=== PATIENT | female | born 1955 | race Caucasian/White ===

== ENCOUNTER 2021-11-19 07:58 | Day surgery (SDC) | payer MEDICAID ==
[~2021-11-19] VITALS: Ht 170.2 cm; Wt 72.8 kg
[2021-11-19 08:15] VITALS: BP 176/101
[2021-11-19] MEDS ORDERED: HYDR-3964 PO (08:18)
[2021-11-19] MEDS ORDERED: IBUP-1986 PO (08:18)
[2021-11-19 11:24] LABS: BASOPHILS # (AUTO) 0.1 X10'3 (0-0.2); EOSINOPHILS # (AUTO) 0.1 X10'3 (0-0.9); MEAN PLATELET VOLUME 7.7 FL (7.4-10.4); MONOCYTES # (AUTO) 0.9 X10'3 (0-0.9); MONOCYTES % (AUTO) 10.7 % (2-12)
[2021-11-19 11:25] LABS: BASOPHILS % (AUTO) 0.7 % (0-1); EOSINOPHILS % (AUTO) 1.2 % (0-6); HEMATOCRIT 39.2 % (35.0-45.0); HEMOGLOBIN 12.8 g/dl (12.0-16.0); LYMPHOCYTES % (AUTO) 12.4 % (21-51); MEAN CORPUSCULAR HEMOGLOBIN 27.1 PG (27.0-31.0); MEAN CORPUSCULAR HGB CONC 32.7 g/dL (33.0-36.5); MEAN CORPUSCULAR VOLUME 82.9 FL (78-98); NEUTROPHILS # (AUTO) 6.3 X10'3 (1.8-7.7); PLATELET COUNT 392 X10'3 (140-440); RED BLOOD COUNT 4.73 X10'6 (4.20-5.60); RED CELL DISTRIBUTION WIDTH 16.2 % (11.5-14.5); WHITE BLOOD COUNT 8.4 X10'3 (4.5-11.0)
[2021-11-19] MEDS ORDERED: midazolam 1 mg/ML 2ml injection ONE (12:14)
[2021-11-19] MEDS ORDERED: fentaNYL/PF 50MCG/1 ML 2ML syringe ONE (12:15)
--- NOTE | 2021-11-19 12:50 | NUR ---
pt discharged in stable condition. all belongings sent home with pt. pt will follow up with Dr. Encarnacion for a bronchoscopy. procedure not done today. pt ambulated to private vehicle. piv dc'd canula intact.
== END 2021-11-19 12:50 | disposition home or self-care (01) ==
LOC: SSTAY O 07:58
PROVIDERS: ATTEND Preventive Medicine Aerospace Medicine
DX: J98.59 Other diseases of mediastinum, not elsewhere classified (principal); Z79.01 Long term (current) use of anticoagulants
CPT/HCPCS: 32408; 85025; 85610; J2250; J3010; J7030; 77012; A4615

== ENCOUNTER 2022-04-12 12:15 | Day surgery (SDC) | payer MEDICAID ==
[~2022-04-12] VITALS: Ht 167.6 cm; Wt 55.4 kg
[~2022-04-12 12:15] MED LIST: HYDR-3964 PO; IBUP-1986 PO
[2022-04-12 12:56] VITALS: BP 181/102
[2022-04-12] MEDS ORDERED: OXYC20TA78 PO (12:57)
[2022-04-12] MEDS ORDERED: POLY17PO59 PO (12:57)
[2022-04-12] MEDS ORDERED: PANT40TA54 PO (12:57)
[2022-04-12] MEDS ORDERED: PROC10TA10 (12:57)
[2022-04-12] MEDS ORDERED: ALBU90AE2 PO (12:57)
[2022-04-12 13:14] LABS: BASOPHILS % (AUTO) 0.7 % (0-1); EOSINOPHILS # (AUTO) 0.1 X10'3 (0-0.9); EOSINOPHILS % (AUTO) 1.3 % (0-6); HEMATOCRIT 36.7 % (35.0-45.0); LYMPHOCYTES # (AUTO) 0.5 X10'3 (1.1-4.8); LYMPHOCYTES % (AUTO) 7.3 % (21-51); MEAN CORPUSCULAR HEMOGLOBIN 32.4 PG (27.0-31.0); MEAN CORPUSCULAR HGB CONC 32.6 g/dL (33.0-36.5); MEAN CORPUSCULAR VOLUME 99.4 FL (78-98); MEAN PLATELET VOLUME 8.1 FL (7.4-10.4); MONOCYTES # (AUTO) 0.5 X10'3 (0-0.9); NEUTROPHILS # (AUTO) 5.7 X10'3 (1.8-7.7); NEUTROPHILS % (AUTO) 82.7 % (42-75); PLATELET COUNT 288 X10'3 (140-440); RED CELL DISTRIBUTION WIDTH 17.8 % (11.5-14.5); WHITE BLOOD COUNT 6.9 X10'3 (4.5-11.0)
[2022-04-12] MEDS ORDERED: midazolam 1 mg/ML 2ml injection ONE (14:13)
[2022-04-12] MEDS ORDERED: heparin sodium, porcine/PF 100unit/ml 5ML syringe ONE (14:13)
[2022-04-12] MEDS ORDERED: FENTANYL CITRATE/PF 50 MCG/1 ML VIAL ONE (14:13)
[2022-04-12] MEDS ORDERED: LIDOcaine 1% 30ml preserv. free vial ONE (14:14)
[2022-04-12] MEDS ORDERED: hydrALAZINE 20mg/ml inj. IV ONE (14:45)
[2022-04-12 15:00] VITALS: BP 175/110
[2022-04-12 15:15] VITALS: BP 174/103
[2022-04-12 15:30] VITALS: BP 170/101
[2022-04-12 15:45] VITALS: BP 166/96
== END 2022-04-12 16:05 | disposition home or self-care (01) ==
LOC: SSTAY O 12:15
PROVIDERS: ATTEND Radiology Vascular & Interventional Radiology
DX: C34.91 Malignant neoplasm of unspecified part of right bronchus or lung (principal); Z79.899 Other long term (current) drug therapy
CPT/HCPCS: 36415; 36561; 76937; 77001; 85025; 99152; 99153; C1788; C1894; J0360; J1642; J2250; J3010; J7030; A4620; J3490